=== PATIENT | female | born 1950 | race Caucasian/White ===

== ENCOUNTER → 2016-03-19 | Outpatient (CLI) | payer BC ==
[~2016-03-19] MED LIST: ALBUAER2 INH; B-COTAB18 PO; CETI10TA10 PO; CHOL100027 PO; FIBER PO; MULT-506 PO; PRLSR20 PO
--- NOTE | 2016-03-19 15:00 | MAMMOGRAPHY REPORT ---
UNILATERAL LEFT DIGITAL DIAGNOSTIC MAMMOGRAM TOMOSYNTHESIS WITH CAD AND TARGETED LEFT ULTRASOUND: CLINICAL HISTORY: 65-year-old woman presents for follow-up of masses in the far superior posterior l eft breast, best seen on the MLO view which may represent fat necrosis. History of reduction mammop lasty. TECHNIQUE: Left breast tomosynthesis in addition to standard 2D mammography was performed. Current wilmer canela was also evaluated with a Computer Aided Detection (CAD) system. COMPARISON: Comparison is made to exams dated: 09/15/2015 ultrasound, 09/15/2015 mammogram, 09/08/2015 mammogram, 08/20/2014 mammogram, and 08/19/2013 mammogram - [facility]. BREAST COMPOSITION: The tissue of the left breast is almost entirely fatty. FINDINGS: There is evidence of prior reduction mammoplasty. There is a benign rim calcification in the lower inner anterior left breast. Another benign rim calcification is identified in the far po sterior superior left breast, projecting over the pectoralis muscle on the MLO view. There are othe r smaller benign rim calcifications scattered throughout the left breast. There is an increasingly conspicuous 2-3 mm mass in the upper outer anterior left breast, for which further evaluation with u ltrasound was performed. Some of the round masses in the far superior far posterior left breast per sist and some are less conspicuous compared to the prior exam suggesting they may represent fat necr osis. Further evaluation with ultrasound was performed. No new focal area of architectural distort ion or cluster of suspicious microcalcifications are seen. Targeted ultrasound was performed in the upper outer quadrant of the left breast, and in the 10:00 a nd 11:00 axes. In the 2:00 breast, 2 cm from the nipple, there is a circumscribed round hypoechoic solid versus cystic mass measuring 2.4 x 2.3 x 2.6 mm. This correlates well with the newly visualiz ed small masses in the upper outer quadrant of the left breast. There is a nearly anechoic 2.1 x 2. 0 x 2.6 mm mass in the 11:00 left breast, 9 cm from the nipple, that is not significantly changed co mparing to the 09/15/2015 ultrasound. A slightly larger hypoechoic mass with peripheral curvilinear calcification is again seen in the 10:00 left breast, 8 cm from the nipple, measuring 7.0 x 6.5 x 6 .1 mm. This is also unchanged comparing to the prior ultrasound and likely represents the rim calci fication. IMPRESSION: ACR-BI-RADS CATEGORY 3: PROBABLY BENIGN, TARGETED ULTRASOUND ACR-BI-RADS CATEGORY 3: AR OBABLY BENIGN 1. There are some persistent and some slightly decreased round masses in the far superior and electronics specialist ior left breast on the MLO view that most likely represent evolving fat necrosis. However, longer s tability is needed given that only 2 stable hypoechoic masses are identified on ultrasound in the 10 :00 and 11:00 axes. 2. A newly visualized 2-3 mm mass in the 2:00 left breast mammographically correlates with a hypoec hoic solid versus cystic mass on ultrasound, with a maximum dimension of 2.6 mm. This is most likel y benign and could represent a [place] located cyst, however a solid mass such as a papilloma cannot b e completely excluded. Options of a short interval follow-up targeted ultrasound in 6 months versus ultrasound guided core needle biopsy were provided. The patient will discuss these options with he r breast surgeon, Dr. Dimas, and call to schedule her follow-up appointment. Approximately 10% of breast cancers are not detected with mammography. A negative mammographic repor t should not delay biopsy if a clinically suggestive mass is present. Brenda Kelly M.D. ay/:03/19/2016 10:02:55 Automobile Dealer: Jennifer Norris, [facility] letter sent: Follow Up Recommended 3 BI-RADS Code: ACR-BI-RADS Category 3: Probably Benign Ultrasound BI-RADS: ACR-BI-RADS Category 3: P robably Benign
== END | disposition home or self-care (01) ==
LOC: C.MAMM 09:22
PROVIDERS: ATTEND Family Medicine
DX: N63 Unspecified lump in breast (principal); R92.8 Other abnormal and inconclusive findings on diagnostic imaging of breast

== ENCOUNTER → 2016-03-29 | Outpatient (CLI) | payer BC ==
--- NOTE | 2016-03-29 09:35 | Discharge Instructions ---
Discharge Instructions Procedure Procedure Date: Mar 29, 2016. Reason for visit: Left Mass 2 O'clock. Discharge Discharge Date: Mar 29, 2016. Discharge Diagnosis: status post breast biopsy Instructions Activity Recommendations: Additional Limitations (see below) Return to School/Work: no limitations Recommended Home Diet: No Limitations Provider Instructions: ACTIVITY RECOMMENDATIONS: * No lifting, pushing, pulling or exercising the affected side for three days. RETURN TO SCHOOL/WORK: * You may return to work/school after the procedure, but do not perform any strenuous activities for 24 to 48 hours. MEDICATIONS: * Tylenol (two 325 mg) every four to six hours if needed for mild pain (if not allergic to Tylenol). DIET: * Resume previous diet. SPECIAL CARE INSTRUCTIONS: * Keep biopsy site dry for 24 hours. May shower after 24 hours, but do not soak (bathe) incision. * May remove Tegaderm (plastic patch) tomorrow AFTER showering. * Leave the steri-strips on for one week. Allow the steri-strips to fall off by themselves. If not off after one week, you may remove them. You may place a Bandaid crosswise over the strips, if desired. * Apply ice 10 minutes on and 10 minutes off as needed. * Wear a bra at bedtime to sleep more comfortably for 2-3 days. * Your referring physician should have the results after approximately 5 to 7 business days. * Call for unusual bleeding, fever, drainage, etc or if you have any questions call during normal business hours or after hours call Dr Christiansen, [phone]. FOLLOW UP VISIT: Follow-up with Referring Physician as scheduled. Allergies Coded Allergies: Blackwell Blue FCF (Verified Allergy, Mild, ITCHINESS, 10/08/14) ENTERED FROM OLD ENTRY NOTED 'EXTEX' Erythrosine Red No. 3 (Verified Allergy, Mild, ITCHINESS, 10/08/14) ENTERED FROM OLD ENTRY NOTED 'EXTEX' Guaifenesin (Verified Allergy, Mild, ITCHINESS, 10/08/14) ENTERED FROM OLD ENTRY NOTED 'EXTEX' Phenylephrine (Verified Allergy, Mild, ITCHINESS, 10/08/14) ENTERED FROM OLD ENTRY NOTED 'EXTEX' Rofecoxib (Verified Allergy, Mild, ?, 10/08/14) Yellow Dye (Verified Allergy, Mild, ITCHINESS, 10/08/14) ENTERED FROM OLD ENTRY NOTED 'EXTEX' Clarithromycin (Verified Allergy, Unknown, UNKOWN, 10/08/14) Doxycycline (Verified Allergy, Unknown, UNKNOWN, 10/08/14) Naproxen (Unverified Allergy, Unknown, UNKNOWN, 10/08/14) Acetaminophen (Verified Adverse Reaction, Intermediate, NAUSEA & VOMITING , 10/08/14) Estrogens (Unverified Adverse Reaction, Unknown, HEADACHES, 10/08/14) Morphine (Verified Adverse Reaction, Unknown, ., 10/08/14) OLD ENTRY WITH ADVERSE REACTION TO MORPHINE; NO FURTHER INFO AVAIL; Oxycodone (Unverified Adverse Reaction, Unknown, GI UPSET, 10/08/14) Jessica Reno Recommendations: Call your doctor if: * Temperature above 101 degrees * Pain not relieved by pain medicine ordered * There is increased drainage or redness from any incision * You have any unanswered questions or concerns. Your Doctors Instructions noted above were prepared by provider Karen Christiansen. Patient Signature Section: Patient Instructions Signature Page Swetha Colon Patient (or Guardian) Signature/Date: I have read and understand the instructions given to me by my caregivers. Caregiver/RN/Doctor Signature/Date: The above-named patient and/or guardian has received patient instructions on this date. + Original Patient Signature Page (only) stays with chart. Please make copy for patient.
--- NOTE | 2016-03-29 13:29 | MAMMOGRAPHY REPORT ---
ULTRASOUND GUIDED BIOPSY LEFT BREAST: 03/29/2016 CLINICAL HISTORY: Left 2:00 breast mass, for which biopsy was recommended. The patient also reports a palpable lump in her left inferior breast which she has had for 6 months. Preprocedural ultrasound was performed of the area of the palpable lump pointed out by the patient, in the left breast at 6:30, approximately 3 cm from the nipple. At the site of the palpable lump th ere is a superficial oval anechoic circumscribed mass which measures 5 x 4 x 6 mm. This likely spencer esponds with a benign rim calcification seen mammographically, and is benign and consistent with an oil cyst. PATIENT CONSENT: The procedure, risks and benefits were discussed with the patient and informed writ ten consent was obtained. A timeout was performed immediately prior to the procedure. PROCEDURE DESCRIPTION: With ultrasound guidance, aseptic technique, and lidocaine as the local anest hetic (1% lidocaine to anesthetize the skin and 1% lidocaine with epinephrine to anesthetize the tasha per tissues), the mass of concern in the left breast at 2:00 was sampled 1 time with a 14-gauge Achi justine biopsy needle. After the first pass, the mass had collapsed and was no longer evident, suggesti ve of a cyst such as an oil cyst. Therefore, no further passes were made. A metallic localizer cli p was placed in the region of the biopsied mass. Direct pressure was applied to the site immediately post procedure and hemostasis was achieved. Postprocedure unilateral mammograms were performed to confirm placement of the clip in the expected location of the breast mass. The patient tolerated the procedure without complication. She was given wound care instructions. The specimens were sent to pathology for analysis. COMPARISON: Comparison is made to exams dated: 03/19/2016 ultrasound, 03/19/2016 mammogram, 09/15/2015 ultrasound, 09/15/2015 mammogram, 09/08/2015 mammogram, and 08/20/2014 mammogram - [facility]. IMPRESSION: ULTRASOUND GUIDED BIOPSY 1. Ultrasound guided core needle biopsy of the left 2:00 breast mass, with clip placement. The mas s collapsed after the first pass, suggestive of a cyst such as an oil cyst. The patient will receiv e pathology results from her referring provider. 2. A benign 6 mm oil cyst seen at the site of the palpable lump pointed out by the patient in the l eft breast at approximately 6:30. Karen Christiansen M.D. ah/:03/29/2016 10:00:05 Agricultural Science Professor: Agatha MCCLURE)([place]), [facility]
--- NOTE | 2016-03-29 13:30 | MAMMOGRAPHY REPORT ---
UNILATERAL LEFT DIGITAL DIAGNOSTIC MAMMOGRAM: 03/29/2016 CLINICAL HISTORY: Status post ultrasound guided biopsy of the left 2:00 breast mass. TECHNIQUE: Postprocedural left CC and ML views were obtained. COMPARISON: Comparison is made to exams dated: 03/19/2016 mammogram, 09/15/2015 mammogram, 09/08/2015 mammogram, 08/20/2014 mammogram, 08/19/2013 mammogram, and 08/18/2012 mammogram - [facility]. BREAST COMPOSITION: The tissue of the left breast is almost entirely fatty. FINDINGS: A new biopsy marker clip is seen at the site of the biopsied mass in the left upper outer quadrant. The biopsy clip is located at the site of the mammographic mass visualized on the 017 exam, indicating good correlation between the biopsied sonographic mass and the mammographic mas s. No significant postbiopsy hematoma is seen. IMPRESSION: POST PROCEDURE IMAGING FOR MARKER PLACEMENT New biopsy marker clip status post ultrasound-guided biopsy of the left 2:00 breast mass. Pathology results are pending. Approximately 10% of breast cancers are not detected with mammography. A negative mammographic repor t should not delay biopsy if a clinically suggestive mass is present. Karen Christiansen M.D. ah/:03/29/2016 10:16:03 Senior Living Advisor: Agatha MCCLURE)([place]), [facility] BI-RADS Code: Post Procedure Imaging For Marker Placement
== END | disposition home or self-care (01) ==
LOC: C.MAMM 09:03
PROVIDERS: ATTEND Surgery
DX: N60.12 Diffuse cystic mastopathy of left breast (principal); N60.02 Solitary cyst of left breast

== ENCOUNTER → 2016-04-21 | Outpatient (CLI) | payer BC ==
--- NOTE | 2016-04-21 19:31 | DIAGNOSTIC IMAGING REPORT ---
CHEST 2 VIEWS ROUTINE CLINICAL HISTORY: Bronchitis. COMPARISON STUDY: 05/14/2013 FINDINGS: The cardiac and mediastinal contours are normal. There is no evidence of focal pulmonary consolidation. There is no evidence of failure. No pleural effusions are visualized.[ IMPRESSION: No active disease in the chest. Electronically signed by: Adiel Espinosa M.D. 04/21/2016 7:30 PM Dictated Date/Time: 04/21/2016 7:29 PM
== END | disposition home or self-care (01) ==
LOC: C.RAD 18:56
PROVIDERS: ATTEND Plastic Surgery
DX: J40 Bronchitis, not specified as acute or chronic (principal)

== ENCOUNTER → 2016-06-06 | Outpatient (CLI) | payer BC ==
[2016-06-06 18:28] LABS: BLOOD UREA NITROGEN 13 mg/dl (7-18); CALCIUM 8.8 mg/dl (8.5-10.1); CARBON DIOXIDE 29 mmol/L (21-32); CHLORIDE 108 mmol/L (98-107); CREATININE 0.85 mg/dl (0.60-1.20); GLUCOSE 102 mg/dl (70-99); POTASSIUM 4.3 mmol/L (3.5-5.1); SODIUM 144 mmol/L (136-145)
[2016-06-06 18:33] LABS: CHOLESTEROL 186 mg/dl (0-200); CHOLESTEROL/HDL RATIO 2.7; HDL CHOLESTEROL 69 mg/dl; LDL CHOLESTEROL CALCULATED 100 mg/dl; TRIGLYCERIDES 86 mg/dl (0-150); VERY LOW DENSITY LIPOPROT CALC 17 mg/dl
== END | disposition home or self-care (01) ==
LOC: C.LABPVFM 11:20
PROVIDERS: ATTEND Nurse Practitioner
DX: I10 Essential (primary) hypertension (principal); E55.9 Vitamin D deficiency, unspecified; Z13.220 Encounter for screening for lipoid disorders

== ENCOUNTER → 2016-09-11 | Outpatient (CLI) | payer BC ==
--- NOTE | 2016-09-11 15:59 | MAMMOGRAPHY REPORT ---
BILATERAL DIGITAL SCREENING MAMMOGRAM TOMOSYNTHESIS WITH CAD: 09/11/2016 CLINICAL HISTORY: Routine screening. Patient has no complaints. TECHNIQUE: Breast tomosynthesis in addition to standard 2D mammography was performed. Current study was also evaluated with a Computer Aided Detection (CAD) system. COMPARISON: Comparison is made to exams dated: 03/29/2016 mammogram, 03/19/2016 mammogram, 09/15/2015 ma mmogram, 09/08/2015 mammogram, 08/20/2014 mammogram, and 08/19/2013 mammogram - [facility]. BREAST COMPOSITION: The tissue of both breasts is almost entirely fatty. FINDINGS: There is evidence of prior reduction mammoplasty. There is stable asymmetry with associate d calcification in the superior right breast on the MLO view, which appears similar dating back to at least 2007, therefore likely benign. There is a stable metallic biopsy marker in the left breast. Scattered benign-appearing calcifications. No new suspicious mass, architectural distortion or clust er of microcalcifications is seen. IMPRESSION: ACR BI-RADS CATEGORY 1: NEGATIVE There is no mammographic evidence of malignancy. A 1 year screening mammogram is recommended. The pa tient will receive written notification of the results. Approximately 10% of breast cancers are not detected with mammography. A negative mammographic report should not delay biopsy if a clinically suggestive mass is present. Brenda Kelly M.D. ay/:09/11/2016 13:09:29 Respiratory Supervisor: Leyla OWEN(Maco)([place])([place]), [facility] letter sent: Normal 1/2 BI-RADS Code: ACR BI-RADS Category 1: Negative
== END | disposition home or self-care (01) ==
LOC: C.MAMM 09:05
PROVIDERS: ATTEND Family Medicine
DX: Z12.31 Encounter for screening mammogram for malignant neoplasm of breast (principal)

== ENCOUNTER → 2016-12-24 | Outpatient (CLI) | payer BC ==
[2016-12-24 12:25] LABS: BLOOD UREA NITROGEN 13 mg/dl (7-18); BUN/CREATININE RATIO 15.6 (10-20); CALCIUM 8.9 mg/dl (8.5-10.1); CARBON DIOXIDE 28 mmol/L (21-32); CHLORIDE 108 mmol/L (98-107); CREATININE 0.84 mg/dl (0.60-1.20); GLUCOSE 100 mg/dl (70-99); POTASSIUM 4.2 mmol/L (3.5-5.1); SODIUM 142 mmol/L (136-145)
== END | disposition home or self-care (01) ==
LOC: C.LABBFT 07:57
PROVIDERS: ATTEND Nurse Practitioner
DX: I10 Essential (primary) hypertension (principal)

== ENCOUNTER → 2017-06-27 | Outpatient (CLI) | payer BC ==
[2017-06-27 13:47] LABS: BLOOD UREA NITROGEN 9 mg/dl (7-18); CALCIUM 8.9 mg/dl (8.5-10.1); CARBON DIOXIDE 28 mmol/L (21-32); CHOLESTEROL 191 mg/dl (0-200); CREATININE 0.94 mg/dl (0.60-1.20); GLUCOSE 94 mg/dl (70-99); POTASSIUM 4.3 mmol/L (3.5-5.1); SODIUM 141 mmol/L (136-145)
[2017-06-27 13:51] LABS: LDL CHOLESTEROL CALCULATED 100 mg/dl
== END | disposition home or self-care (01) ==
LOC: C.LABPVFM 10:36
PROVIDERS: ATTEND Nurse Practitioner
DX: I10 Essential (primary) hypertension (principal); E55.9 Vitamin D deficiency, unspecified

== ENCOUNTER → 2017-09-13 | Outpatient (CLI) | payer BC ==
--- NOTE | 2017-09-16 07:45 | MAMMOGRAPHY REPORT ---
BILATERAL DIGITAL SCREENING MAMMOGRAM TOMOSYNTHESIS WITH CAD: 09/13/2017 CLINICAL HISTORY: Routine screening. Patient has no complaints. TECHNIQUE: The study was acquired using full field digital technology and interpreted from soft copy. Breast tomosynthesis in addition to standard 2D mammography was performed. Current study was also ev aluated with a Computer Aided Detection (CAD) system. COMPARISON: Comparison is made to exams dated: 09/11/2016 mammogram, 03/29/2016 mammogram, 03/19/2016 ma mmogram, 09/15/2015 mammogram, 09/08/2015 mammogram, and 08/20/2014 mammogram - [facility] nter. BREAST COMPOSITION: The tissue of both breasts is almost entirely fatty. FINDINGS: No suspicious masses, calcifications, or areas of architectural distortion are noted in either breast . There has been no significant interval change compared to prior exams. There are stable changes fr om bilateral reduction mammoplasty. Bilateral benign-appearing calcifications are not significantly changed. A biopsy clip is again noted within the left upper outer quadrant. IMPRESSION: There is no mammographic evidence of malignancy. A 1 year screening mammogram is recommended.( 019) The patient will receive written notification of the results. Some breast cancers are not detected with mammography. A negative mammographic report should not piter y biopsy if a clinically suggestive mass is present. Karen Christiansen M.D. ah/:09/13/2017 12:29:11 Border Measurer And Cutter: Leyla Allen RT(Maco)(M)([place]), [facility] letter sent: Normal 1/2 BI-RADS Code: ACR BI-RADS Category 2: Benign
== END | disposition home or self-care (01) ==
LOC: C.MAMM 09:32
PROVIDERS: ATTEND Nurse Practitioner
DX: Z12.31 Encounter for screening mammogram for malignant neoplasm of breast (principal)

== ENCOUNTER 2019-04-14 17:28 | Inpatient (IN) ==
[2019-04-14] MEDS ORDERED: METHYLPREDNISOLONE IV STA (19:54)
[2019-04-14] MEDS ORDERED: XOPENEX/ATROVENT 1.25mg/0.5MG NEB COMBO NEB STA (19:56)
[2019-04-14] MEDS ORDERED: ACETAMINOPHEN 500 MG TAB PO STA (19:56)
[2019-04-14] MEDS ORDERED: SODIUM CHLORIDE 0.9% 1000ML 1,000 ML IV ONE (19:58)
[2019-04-14] MEDS ORDERED: IPRATROPIUM BROMIDE NEB SOLN 0.02% 2.5 ML VIAL INH SCH (20:00)
[2019-04-14] MEDS ORDERED: LEVALBUTEROL 1.25MG/0.5ML NEB INH SCH (20:00)
--- NOTE | 2019-04-14 20:25 | Emergency Department Note ---
Entered by Dimitry Maldonado acting as a scribe for History of Present Illness General Chief complaint: Cough Stated complaint: COUGH, SOB, CONGESTION Time Seen by Provider: 04/14/19 19:48 Source: patient History of Present Illness Onset (ago): day(s) Pain Consistency: + constant (100.3) Quality: + other (fever) Relieved By: + medication (Tylenol) Associated symptoms: + denies other symptoms (vomiting), + cough and + other (sore throat, nausea) The patient is a 68 y/o female who presents to the ED w/ CC of an intermittent fever beginning three days ago. The patient states she has had a loose cough and sore throat for the past six days. She reports she the developed a cough four days ago. The patient notes she was evaluated by her PCP and placed on a z-pack that she finished yesterday. She states she developed a fever after starting the z-pack, and for the past three days she has had a progressive fever. The patient reports she went to her PCP yesterday for her fever of 100.3 degrees that per sisted after taking Tylenol. She notes she was placed on another z-pack. The patient states she was also placed on Prednisone. She reports she has now developed an intermittent productive cough. The patient notes she does not feel better today than she did yesterday. She states a history of asthma and notes she has an inhaler and a nebulizer. The patient reports she did not use her nebulizer yet. She notes she has not vomited yet but has been nauseous from what she thinks is her sinus drainage. The patient states she has not been able to eat much. She denies receiving her flu shot and being around anyone sick. Home Medications Home Medications Medication Instructions Recorded Confirmed Type cetirizine 10 mg PO HS 02/05/18 04/14/19 History cholecalciferol (vitamin D3) 5,000 unit PO QAM 02/05/18 04/14/19 History [Vitamin D3] fiber 3.4 g PO QAM 02/05/18 04/14/19 History hydrocortisone [Proctozone-HC] 1 applic UT DAILY PRN 02/05/18 04/14/19 History levalbuterol HCl 1.25 mg INHALATION TID PRN 02/05/18 04/14/19 History levalbuterol tartrate 2 puff INHALATION QID PRN 02/05/18 04/14/19 History azelastine 137 mcg (0.1 %) nasal 2 sprays INTRANASAL BID PRN #1 ml 09/18/18 04/14/19 History spray aerosol lisinopril 10 mg tablet 10 mg PO Q OTHER DAY #30 tab 09/22/18 04/14/19 Rx azithromycin 250 mg PO DAILY 04/14/19 04/14/19 History codeine 10 mg-guaifenesin 100 mg/5 5 ml PO Q6H PRN #118 ml 04/14/19 04/14/19 Rx mL oral liquid prednisone 10 mg tablet 10 mg PO .COMPLEX #14 tab 04/14/19 04/14/19 Rx Allergies Allergy/AdvReac Type Severity Reaction Status Date / Time naproxen Allergy Severe sob Verified 04/14/19 21:11 cat dander Allergy Intermediate SOB Verified 04/14/19 21:12 clarithromycin Allergy Intermediate ITCHINESS Verified 04/14/19 21:11 dog dander Allergy Intermediate SOB Verified 04/14/19 21:12 doxycycline Allergy Mild itchy Verified 04/14/19 21:11 guaifenesin Allergy Mild ITCHINESS Verified 04/14/19 21:11 phenylephrine Allergy Mild ITCHINESS Verified 04/14/19 21:11 rofecoxib Allergy Mild sob Verified 04/14/19 21:11 bromocriptine [From Parlodel] Allergy Unknown CAN'T Verified 04/14/19 21:11 REMEMBER raloxifene [From Evista] AdvReac Intermediate CAUSED Verified 04/14/19 21:11 STOMACH ISSUES DUE TO ACID REFLUX. morphine AdvReac Mild Gastrointestinal Verified 04/14/19 21:11 Upset Estrogens AdvReac Unknown HEADACHES Verified 04/14/19 21:11 oxycodone AdvReac Unknown GI UPSET Verified 04/14/19 21:11 ANY PERFUMED, FLORAL SCENTS Allergy Severe SOB Uncoded 04/14/19 21:12 [place] Blue [facility] Allergy Mild ITCHINESS Uncoded 04/14/19 21:11 Past Med/Surg History Medical History Asthma Endometriosis Fibromyalgia GERD (gastroesophageal reflux disease) Hearing deficit left ear History of colon polyps Hypertension Scoliosis Surgical History H/O arthroscopic knee surgery (Inactive) History of arthroscopy of left knee History of arthroscopy of right knee History of bilateral breast reduction surgery History of bilateral cataract extraction History of bilateral tubal ligation History of colonoscopy History of dilatation and curettage History of endoscopic sinus surgery History of esophagogastroduodenoscopy (EGD) History of tonsillectomy and adenoidectomy History of tooth extraction wisdom teeth History of total abdominal hysterectomy and bilateral salpingo-oophorectomy Hx of myringotomy left ear S/P hysterectomy (Ruled-out) Family History Father Family history of diabetes mellitus Prostate cancer Myocardial infarction Mother Family history of diabetes mellitus Family hx colonic polyps Myocardial infarction Brother Family history of diabetes mellitus Sister Family history of diabetes mellitus Family hx colonic polyps Family/Other Colorectal cancer nephew Prostate cancer niece Uncle Myocardial infarction Aunt Myocardial infarction Other Family hx of colon cancer Denies family history of Ovarian cancer Breast cancer Social History Preferred Language: Swedish Communication Ability: Effective Aircraft Instrument Tester Required: No Beliefs That Will Affect Care: None Current Living Situation: Family Current Living Situation Comment: Lives with son Feels Safe at Home: Yes Smoking Status: Never smoker Second Hand Exposure: No ; Hx Alcohol Use: No Hx Substance Use: No Dental Care, Regularly: Yes Seatbelt Use: always Review of Systems See HPI for pertinent positives & negatives. and A total of 10 systems reviewed and were otherwise negative Physical Exam Vital Signs Vital Signs - 24 hr 04/14/19 18:09 04/14/19 19:28 04/14/19 19:54 Temperature 38.0 C H Temperature Source Oral Pulse Rate 100 H Pulse Rate [Right Finger] 90 Pulse Rate from SpO2 Sensor Respiratory Rate 22 20 Respiratory Effort / Characteristics Non-Labored Respiratory Depth Normal Respiratory Pattern Regular Blood Pressure 125/82 Blood Pressure [Right Arm] 130/88 Blood Pressure Mean 96 Blood Pressure Mean [Right Arm] 102 Blood Pressure Position Sitting Pulse Oximetry 94 99 97 Oxygen Delivery Method Room Air Room Air Sepsis Recent Fever Within 48 Hours Yes Sepsis Action Taken by Nursing No Action Required 04/14/19 20:39 04/14/19 20:47 04/14/19 20:49 Temperature Temperature Source Pulse Rate 94 H Pulse Rate [Right Finger] 90 96 H Pulse Rate from SpO2 Sensor Respiratory Rate 18 27 H 20 Respiratory Effort / Characteristics Non-Labored Spontaneous Respiratory Depth Respiratory Pattern Blood Pressure 131/86 Blood Pressure [Right Arm] 131/86 Blood Pressure Mean 103 Blood Pressure Mean [Right Arm] 101 Blood Pressure Position Pulse Oximetry 94 97 Oxygen Delivery Method Room Air Sepsis Recent Fever Within 48 Hours Sepsis Action Taken by Nursing 04/14/19 21:02 04/14/19 22:00 04/14/19 23:10 Temperature Temperature Source Pulse Rate 93 H 84 Pulse Rate [Right Finger] 88 Pulse Rate from SpO2 Sensor Respiratory Rate 21 23 Respiratory Effort / Characteristics Respiratory Depth Respiratory Pattern Blood Pressure 128/88 136/79 Blood Pressure [Right Arm] 172/99 H Blood Pressure Mean 101 98 Blood Pressure Mean [Right Arm] 123 Blood Pressure Position Pulse Oximetry 93 Oxygen Delivery Method Room Air Sepsis Recent Fever Within 48 Hours Sepsis Action Taken by Nursing 04/14/19 23:11 04/14/19 23:12 Temperature Temperature Source Pulse Rate 96 H 86 Pulse Rate [Right Finger] Pulse Rate from SpO2 Sensor 96 H 86 Respiratory Rate 35 H 21 Respiratory Effort / Characteristics Respiratory Depth Respiratory Pattern Blood Pressure 172/99 H Blood Pressure [Right Arm] Blood Pressure Mean 125 Blood Pressure Mean [Right Arm] Blood Pressure Position Pulse Oximetry 90 95 Oxygen Delivery Method Sepsis Recent Fever Within 48 Hours Sepsis Action Taken by Nursing GENERAL: Patient is in no acute distress. HEENT: No acute trauma, normocephalic atraumatic, mucous membranes moist, no nasal congestion, no scleral icterus. No throat erythema. NECK: No stridor, no adenopathy, no meningismus, trachea is midline. LUNGS: Persistent dry cough noted. Equal breath sound bilaterally. No respiratory distress. Scattered wheezes. HEART: Without murmurs gallops or rubs, regular rate and rhythm. ABDOMEN: Soft, nontender, bowel sounds positive, no hernias, no peritonitis. EXTREMITIES: No cyanosis or edema, full range of motion of all the joints without pain or difficulty, no signs for acute trauma. NEUROLOGIC: Oriented x 3, no acute motor or sensory deficits, no focal weakness. SKIN: No rash, no jaundice, no diaphoresis. Course Course 1950: Past medical records reviewed. The patient was evaluated in room C10. A complete history and physical exam was performed. 2200: Upon reevaluation, the patient is resting comfortably. I discussed laboratory and radiographic results with her. She verbalized agreement of the treatment plan. The patient will be evaluated for further management and care. 2208: I reviewed the patient's case with Dr. Camacho, [facility] Hospitalist. He will evaluate the patient for further management. Administered Medications Ipratropium [place] (Atrovent 0.02% 0.5mg/2.5ml) 0.5 mg INH UD FILI Stop: 05/14/19 19:59 Last Admin: 04/14/19 20:36 Dose: 0.5 mg Documented by: [id number] Levalbuterol HCl (Xopenex 1.25mg/0.5ml Neb) 1.25 mg INH UD FILI Stop: 05/14/19 19:59 Last Admin: 04/14/19 20:37 Dose: 1.25 mg Documented by: [id number] Discontinued Medications Acetaminophen (Tylenol) 1,000 mg PO NOW STA Stop: 04/14/19 19:57 Last Admin: 04/14/19 21:06 Dose: 1,000 mg Documented by: [id number] Benzonatate (Tessalon [place]) 100 mg PO NOW ONE Stop: 04/14/19 22:20 Last Admin: 04/14/19 23:12 Dose: 100 mg Documented by: [id number] Methylprednisolone 40 mg/ (Syringe) 1.64 mls @ 1.5 mls/min IV NOW STA Stop: 04/14/19 19:55 Last Admin: 04/14/19 21:06 Dose: 1.5 mls/min Documented by: [id number] Sodium Chloride (Nss 1000ml) 1,000 mls @ 999 mls/hr IV .Q1H1M ONE Stop: 04/14/19 20:58 Last Infusion: 04/14/19 22:16 Dose: 0 mls/hr Documented by: [id number] Admin: 04/14/19 21:06 Dose: 999 mls/hr Documented by: [id number] Ceftriaxone Sodium (Rocephin) 1,000 mg in 50 mls @ 100 mls/hr IV NOW STA Stop: 04/14/19 21:22 Last Infusion: 04/14/19 22:16 Dose: 0 mls/hr Documented by: [id number] Admin: 04/14/19 21:07 Dose: 100 mls/hr Documented by: [id number] Levalbuterol HCl (Xopenex 1.25mg/0.5ml Neb) 1.25 mg NEB NOW STA Stop: 04/14/19 20:35 Last Admin: 04/14/19 21:11 Dose: Not Given Documented by: [id number] Methylprednisolone (Solumedrol) Confirm Administered Dose 40 mg .ROUTE .STK-MED ONE Stop: 04/14/19 21:05 Last Admin: 04/14/19 21:11 Dose: Not Given Documented by: [id number] Miscellaneous (Levalbuterol/Ipratropium 1.25mg) 1 ea NEB NOW STA Stop: 04/14/19 19:57 Last Admin: 04/14/19 21:07 Dose: Not Given Documented by: [id number] Medical Decision Making Differential Diagnosis Differential diagnosis includes: flu like illness, influenza, bronchitis, p neumonia, dehydration, sinusitis, sepsis, failed outpatient treatment, exacerbation of asthma Medical Records Attestation: I reviewed the patient's medical records. Home Medications Current Medication List: was personally reviewed by me Laboratory Data Attestation: I reviewed the patient's lab results. Result diagrams: 04/14/19 20:20 04/14/19 20:20 Lab Results 04/14/19 04/14/19 04/14/19 Range/Units 20:20 20:20 20:20 WBC 8.55 (4.8-10.8) K/uL RBC 5.22 (4.2-5.4) M/uL Hgb 15.3 (12.0-16.0) g/dL Hct 46.2 (37-47) % MCV 88.5 (80-100) fL MCH 29.3 (25-34) pg MCHC 33.1 (32-36) g/dL RDW Std Deviation 39.2 (36.4-46.3) fL RDW Coeff of Chiqui 12.2 (11.5-14.5) % Plt Count 217 (130-400) K/uL MPV 10.4 (7.4-10.4) fL Immature Gran % (Auto) 0.8 % Neut % (Auto) 37.3 % Lymph % (Auto) 46.5 % [place] % (Auto) 13.6 % Eos % (Auto) 1.2 % Baso % (Auto) 0.6 % Immature Gran # (Auto) 0.07 H (0.00-0.02) K/uL Neut # (Auto) 3.19 (1.4-6.5) K/uL Lymph # (Auto) 3.98 H (1.2-3.4) K/uL [place] # (Auto) 1.16 H (0.11-0.59) K/uL Eos # (Auto) 0.10 (0-0.5) K/uL Baso # (Auto) 0.05 (0-0.2) K/uL Sodium 135 L (136-145) mmol/L Potassium 3.9 (3.5-5.1) mmol/L Chloride 101 (98-107) mmol/L Carbon Dioxide 27 (21-32) mmol/L Anion Gap 7.0 (3-11) BUN 13 (7-18) mg/dl Creatinine 1.05 (0.6-1.2) mg/dl Est Cr Clr Drug Dosing 45.2 ml/min Est GFR ( Amer) 63.6 Est GFR (Non-Af Amer) 54.9 BUN/Creatinine Ratio 12.5 (10-20) Glucose 93 (70-99) mg/dl Lactate 1.4 (0.4-2.0) mmol/L Calcium 9.6 (8.5-10.1) mg/dl Total Bilirubin 0.8 (0.2-1) mg/dl AST 28 (15-37) U/L ALT 28 (12-78) U/L Alkaline Phosphatase 73 (45-117) U/L Troponin I < 0.015 (0-0.045) ng/ml Total Protein 8.8 H (6.4-8.2) gm/dl Albumin 4.6 (3.4-5.0) gm/dl Globulin 4.2 H (2.5-4.0) gm/dl Albumin/Globulin Ratio 1.1 (0.9-2) Influenza Type A (PCR) (Neg) Influenza Type B (PCR) (Neg) 04/14/19 Range/Units 20:50 WBC (4.8-10.8) K/uL RBC (4.2-5.4) M/uL Hgb (12.0-16.0) g/dL Hct (37-47) % MCV (80-100) fL MCH (25-34) pg MCHC (32-36) g/dL RDW Std Deviation (36.4-46.3) fL RDW Coeff of Chiqui (11.5-14.5) % Plt Count (130-400) K/uL MPV (7.4-10.4) fL Immature Gran % (Auto) % Neut % (Auto) % Lymph % (Auto) % [place] % (Auto) % Eos % (Auto) % Baso % (Auto) % Immature Gran # (Auto) (0.00-0.02) K/uL Neut # (Auto) (1.4-6.5) K/uL Lymph # (Auto) (1.2-3.4) K/uL [place] # (Auto) (0.11-0.59) K/uL Eos # (Auto) (0-0.5) K/uL Baso # (Auto) (0-0.2) K/uL Sodium (136-145) mmol/L Potassium (3.5-5.1) mmol/L Chloride (98-107) mmol/L Carbon Dioxide (21-32) mmol/L Anion Gap (3-11) BUN (7-18) mg/dl Creatinine (0.6-1.2) mg/dl Est Cr Clr Drug Dosing ml/min Est GFR ( Amer) Est GFR (Non-Af Amer) BUN/Creatinine Ratio (10-20) Glucose (70-99) mg/dl Lactate (0.4-2.0) mmol/L Calcium (8.5-10.1) mg/dl Total Bilirubin (0.2-1) mg/dl AST (15-37) U/L ALT (12-78) U/L Alkaline Phosphatase (45-117) U/L Troponin I (0-0.045) ng/ml Total Protein (6.4-8.2) gm/dl Albumin (3.4-5.0) gm/dl Globulin (2.5-4.0) gm/dl Albumin/Globulin Ratio (0.9-2) Influenza Type A (PCR) Neg for Influ A (Neg) Influenza Type B (PCR) Neg for Influ B (Neg) Imaging Data Radiologist's Impression: Radiology results as stated below per my review and the radiologist's interpretation: XR chest 1V portable CLINICAL HISTORY: SOB COMPARISON STUDY: 04/13/2019 FINDINGS: The cardiac and mediastinal contours remain stable. There is no focal pulmonary consolidation. There is no failure. There are no pleural effusions. There is an 8 mm nodular opacity at the left lung base. No corresponding mass is visualized in this study performed one day prior. This favors atelectatic etiology. Short-term radiographic follow-up is recommended.[ IMPRESSION: 1. No evidence of failure 2. No evidence of lobar consolidation 3. Interval development of an 8 mm opacity at the left lung base. Atelectatic etiology is favored. Short-term radiographic follow-up is recommended ACT 112: Negative or not required by law. Electronically signed by: Adiel Espinosa M.D. 04/14/2019 8:27 PM ECG Data Attestation: I personally reviewed and interpreted this ECG as follows: Indication: + SOB/dyspnea Rate (beats per minute): 93 Rhythm: + normal sinus ECG Intervals/blocks: + Normal QT-c (457) ECG ST segments: no ST elevation ECG Findings: no PVCs Blood Pressure Blood Pressure Findings: Elevated blood pressure Blood Pressure Disposition: further management by hospitalist TASNEEM Narrative Continuous Cardiac Monitoring: An order was placed for continuous cardiac monitoring. The monitor shows a rate of 96 with a normal sinus rhythm. There is no leukocytosis or concerning anemia. No significant electrolyte abnormality or kidney failure. Lactic acid level is not elevated making severe sepsis less likely. There was no worrisome liver enzyme elevation. EKG showed a sinus rhythm, no acute ischemia. Cardiac enzyme testing x1 was not consistent with acute cardiac injury. Influenza testing was negative. Chest film does show a subtle left lower lung infiltrate. The patient presents with a fever. She has been short of breath and is coughing quite a bit. She is on her second course of Zithromax, she is already on prednisone. She is failing outpatient treatment for this pneumonia. The patient was given oral Tylenol, oral Tessalon. She was given IV ceftriaxone as antibiotic coverage. She received a Xopenex/Atrovent neb. She was given IV Solu-Medrol and IV saline. The patient is not comfortable with discharge. She has been worsening despite treatment as an outpatient. I did speak to the supportive employment case manager, the on-call hosp italist has been consulted. IV antibiotic therapy is indicated. Impression & Plan Pneumonia, Asthma exacerbation, Fever, Failure of outpatient treatment Discharge Plan Visit Data Chief Complaint: Cough Stated Complaint: COUGH, SOB, CONGESTION ED Provider: Rodney Simmons Discharge Problem: Pneumonia, Asthma exacerbation, Fever, Failure of outpatient treatment Patient Disposition: Being Evaluated by Hospitalist Forms Stand Alone Forms: My [facility] Prescriptions Prescriptions: No Action prednisone 10 mg tablet 10 mg PO .COMPLEX Qty: 14 RF: 0 codeine-guaifenesin 10-100 mg/5 mL liquid 5 ml PO Q6H PRN (Reason: cold symptoms) Qty: 118 RF: 0 azelastine 137 mcg (0.1 %) aerosol,spray 2 sprays intranasal BID PRN (Reason: allergy symptoms) Qty: 1 RF: 0 lisinopril 10 mg tablet 10 mg PO Q OTHER DAY Qty: 30 RF: 5 cetirizine 10 mg Tablet 10 mg PO HS RF: 0 hydrocortisone [Proctozone-HC] 2.5 % Cream With Perineal Applicator 1 applic UT DAILY PRN (Reason: Hemorrhoids) RF: 0 fiber Powder 3.4 g PO QAM RF: 0 levalbuterol HCl 1.25 mg/0.5 mL Solution For Nebulization 1.25 mg INHALATION TID PRN (Reason: Shortness Of Breath) RF: 0 cholecalciferol (vitamin D3) [Vitamin D3] 5,000 unit Tablet 5,000 unit PO QAM RF: 0 levalbuterol tartrate 45 mcg/actuation Hfa Aerosol Inhaler 2 puff INHALATION QID PRN (Reason: Shortness Of Breath) RF: 0 azithromycin 250 mg tablet 250 mg PO DAILY RF: 0 Referrals Referrals: Natasha Cartagena CRNP [Primary Care Provider] - Discharge Problem: Pneumonia Qualifiers: Pneumonia type: due to unspecified organism Laterality: unspecified laterality Lung location: unspecified part of lung Qualified Code(s): J18.9 - Pneumonia, unspecified organism Asthma exacerbation Qualifiers: Asthma severity: unspecified severity Asthma persistence: unspecified Qualified Code(s): J45.901 - Unspecified asthma with (acute) exacerbation Fever Qualifiers: Fever type: unspecified Qualified Code(s): R50.9 - Fever, unspecified The trentonibe's documentation has been prepared under my direction and personally reviewed by me in its entirety. I confirm that the note above accurately reflects all work, treatment, procedures, and medical decision making performed by me.
[2019-04-14 20:28] LABS: Basophils # (auto) 0.05 K/uL (0-0.2); Basophils % (auto) 0.6 %; Eosinophils % (auto) 1.2 %; Hematocrit (blood only) 46.2 % (37-47); Hemoglobin 15.3 g/dL (12.0-16.0); Immature Granulocytes # (auto) 0.07 K/uL (0.00-0.02); Immature Granulocytes % (auto) 0.8 %; Lymphocytes # (auto) 3.98 K/uL (1.2-3.4); Lymphocytes % (auto) 46.5 %; Mean Corpuscular Hemoglobin 29.3 pg (25-34); Mean Corpuscular Hgb Conc 33.1 g/dL (32-36); Mean Corpuscular Volume 88.5 fL (80-100); Mean Platelet Volume 10.4 fL (7.4-10.4); Monocytes # (auto) 1.16 K/uL (0.11-0.59); Monocytes % (auto) 13.6 %; Neutrophils # (auto) 3.19 K/uL (1.4-6.5); Neutrophils % (auto) 37.3 %; Platelet Count 217 K/uL (130-400); RDW Coefficient of Variation 12.2 % (11.5-14.5); RDW Standard Deviation 39.2 fL (36.4-46.3); Red Blood Count 5.22 M/uL (4.2-5.4); White Blood Count 8.55 K/uL (4.8-10.8)
--- NOTE | 2019-04-14 20:29 | XRay Report ---
XR chest 1V portable CLINICAL HISTORY: SOB COMPARISON STUDY: 04/13/2019 FINDINGS: The cardiac and mediastinal contours remain stable. There is no focal pulmonary consolidati on. There is no failure. There are no pleural effusions. There is an 8 mm nodular opacity at the left lung base. No corresponding mass is visualized in this study performed one day prior. This favors at electatic etiology. Short-term radiographic follow-up is recommended.[ IMPRESSION: 1. No evidence of failure 2. No evidence of lobar consolidation 3. Interval development of an 8 mm opacity at the left lung base. Atelectatic etiology is favored. Sh ort-term radiographic follow-up is recommended ACT 112: Negative or not required by law. Electronically signed by: Adiel Espinosa M.D. 04/14/2019 8:27 PM
[2019-04-14] MEDS ORDERED: LEVALBUTEROL 1.25MG/0.5ML NEB NEB STA (20:34)
[2019-04-14 20:46] LABS: Alanine Aminotransferase 28 U/L (12-78); Albumin Level 4.6 gm/dl (3.4-5.0); Aspartate Aminotransferase 28 U/L (15-37); BUN Creatinine Ratio 12.5 (10-20); Blood Urea Nitrogen 13 mg/dl (7-18); Calcium 9.6 mg/dl (8.5-10.1); Carbon Dioxide 27 mmol/L (21-32); Chloride 101 mmol/L (98-107); Creatinine Clr Calc Pharmacy 45.2 ml/min; Est GFR (African American) 63.6; Est GFR (Non-African American) 54.9; Glucose 93 mg/dl (70-99); Potassium 3.9 mmol/L (3.5-5.1); Sodium 135 mmol/L (136-145)
[2019-04-14 20:50] LABS: Albumin Globulin Ratio 1.1 (0.9-2); Alkaline Phosphatase 73 U/L (45-117); Bilirubin,Total 0.8 mg/dl (0.2-1); Globulin 4.2 gm/dl (2.5-4.0); Total Protein 8.8 gm/dl (6.4-8.2); Troponin I < 0.015 ng/ml (0-0.045)
[2019-04-14] MEDS ORDERED: cefTRIAXone SODIUM 1,000 MG/50 ML BAG IV STA (20:53)
[2019-04-14 21:43] LABS: Influenza A virus by PCR Neg for Influ A (Neg); Influenza B virus by PCR Neg for Influ B (Neg)
[2019-04-14] MEDS ORDERED: BENZONATATE 100 MG CAPSULE PO ONE (22:19)
--- NOTE | 2019-04-14 23:20 | History & Physical Report ---
Date of Service April 14, 2019 Assessment & Plan (1) Pneumonia: Asthmatic bronchitis/left lower lobe pneumonia/failure of outpatient treatment with a azithromycin and prednisone- Ceftriaxone 2 g IV daily. Xopenex 1.25 mg 4 times daily and every 2 hours as needed Azithromycin 500 mg IV daily. Hycodan syrup 10 mils p.o. every 4 hours as needed severe cough Solu-Medrol 40 mg IV every 8 hours. Present on Admission?: Yes (2) Asthmatic bronchitis: See above Present on Admission?: Yes (3) Failure of outpatient treatment: See above Present on Admission?: Yes (4) Benign essential hypertension: Continue lisinopril 10 mg daily Present on Admission?: Yes History of Present Illness Chief Complaint: The patient presents to the emergency department with persistence of cough, shortness of breath and chest congestion not relieved by Z-Сергей x2 in the outpatient setting. Primary Care Provider: KELLIE You The patient is a 68-year-old female with a past medical history including asthma, osteoporosis, allergic rhinitis, benign essential hypertension, GERD and vitamin D deficiency. She initially came sick about a week ago, and was prescribed an initial Z-Сергей, which did not improve significantly, she was prescribed a second Z-Сергей. Over the past 24 hours she has worsened considerably her cough is is paroxysmal and severe. She has had a continued fever up to 100.3 over the past 3 days, despite treatment with prednisone and azithromycin. Because of worsening symptoms, she presents emergency department for assessment tonight. Allergies Allergy/AdvReac Type Severity Reaction Status Date / Time naproxen Allergy Severe sob Verified 04/14/19 21:11 cat dander Allergy Intermediate SOB Verified 04/14/19 21:12 clarithromycin Allergy Intermediate ITCHINESS Verified 04/14/19 21:11 dog dander Allergy Intermediate SOB Verified 04/14/19 21:12 doxycycline Allergy Mild itchy Verified 04/14/19 21:11 guaifenesin Allergy Mild ITCHINESS Verified 04/14/19 21:11 phenylephrine Allergy Mild ITCHINESS Verified 04/14/19 21:11 rofecoxib Allergy Mild sob Verified 04/14/19 21:11 bromocriptine [From Parlodel] Allergy Unknown CAN'T Verified 04/14/19 21:11 REMEMBER raloxifene [From Evista] AdvReac Intermediate CAUSED Verified 04/14/19 21:11 STOMACH ISSUES DUE TO ACID REFLUX. morphine AdvReac Mild Gastrointestinal Verified 04/14/19 21:11 Upset Estrogens AdvReac Unknown HEADACHES Verified 04/14/19 21:11 oxycodone AdvReac Unknown GI UPSET Verified 04/14/19 21:11 ANY PERFUMED, FLORAL SCENTS Allergy Severe SOB Uncoded 04/14/19 21:12 [place] [facility] Allergy Mild ITCHINESS Uncoded 04/14/19 21:11 Home Medications Home Medications Medication Instructions Recorded Confirmed Type cetirizine 10 mg PO HS 02/05/18 04/14/19 History cholecalciferol (vitamin D3) 5,000 unit PO QAM 02/05/18 04/14/19 History [Vitamin D3] fiber 3.4 g PO QAM 02/05/18 04/14/19 History hydrocortisone [Proctozone-HC] 1 applic RI DAILY PRN 02/05/18 04/14/19 History levalbuterol HCl 1.25 mg INHALATION TID PRN 02/05/18 04/14/19 History levalbuterol tartrate 2 puff INHALATION QID PRN 02/05/18 04/14/19 History azelastine 137 mcg (0.1 %) nasal 2 sprays INTRANASAL BID PRN #1 ml 09/18/18 04/14/19 History spray aerosol lisinopril 10 mg tablet 10 mg PO Q OTHER DAY #30 tab 09/22/18 04/14/19 Rx azithromycin 250 mg PO DAILY 04/14/19 04/14/19 History codeine 10 mg-guaifenesin 100 mg/5 5 ml PO Q6H PRN #118 ml 04/14/19 04/14/19 Rx mL oral liquid prednisone 10 mg tablet 10 mg PO .COMPLEX #14 tab 04/14/19 04/14/19 Rx Past Med/Surg History Medical History Asthma Endometriosis Fibromyalgia GERD (gastroesophageal reflux disease) Hearing deficit left ear History of colon polyps Hypertension Scoliosis Surgical History H/O arthroscopic knee surgery (Inactive) History of arthroscopy of left knee History of arthroscopy of right knee History of bilateral breast reduction surgery History of bilateral cataract extraction History of bilateral tubal ligation History of colonoscopy History of dilatation and curettage History of endoscopic sinus surgery History of esophagogastroduodenoscopy (EGD) History of tonsillectomy and adenoidectomy History of tooth extraction wisdom teeth History of total abdominal hysterectomy and bilateral salpingo-oophorectomy Hx of myringotomy left ear S/P hysterectomy (Ruled-out) Family History Father Family history of diabetes mellitus Prostate cancer Myocardial infarction Mother Family history of diabetes mellitus Family hx colonic polyps Myocardial infarction Brother Family history of diabetes mellitus Sister Family history of diabetes mellitus Family hx colonic polyps Family/Other Colorectal cancer nephew Prostate cancer niece Uncle Myocardial infarction Aunt Myocardial infarction Other Family hx of colon cancer Denies family history of Ovarian cancer Breast cancer Social History Preferred Language: Setswana Communication Ability: Effective Extension Course Counselor Required: No Beliefs That Will Affect Care: None Current Living Situation: Family Current Living Situation Comment: with Son Other Information That Helps Us Care for You: No Feels Safe at Home: Yes Safety Concerns: Feels Safe At This Time Smoking Status: Never smoker Second Hand Exposure: No ; Hx Alcohol Use: No Hx Substance Use: No Dental Care, Regularly: Yes Seatbelt Use: always Review of Systems Review of Systems: The patient denies lower extremity swelling, sweats, vomiting, diarrhea , constipation, abdominal pain, pelvic pain, blood in urine or stool, dysuria, urinary frequency or urgency, lightheadedness, dizziness, headache, memory loss, loss of consciousness, rash, abnormal bruising or bleeding, imbalance, focal weakness, numbness or tingling in arms or legs, generalized arthralgias or myalgias, back or neck pain, or night sweats. The review of systems is otherwise negative other than for that already noted above, and at least 10 systems have been reviewed. Physical Exam Physical Exam: The patient is awake, alert and oriented 3, well developed and well nourished, normocephalic and atraumatic, lying in bed and in moderate distress during coughing spasms. HEENT--PERRL, EOMI, mucous membranes and oropharynx dry. Neck--supple. No JVD. No bruits. Thyroid normal, trachea midline, no adenopathy. Heart--normal S1 and S2. No murmurs, rubs or gallops. Lungs-coarse breath sounds with wheezes bilaterally, no respiratory distress, no accessory muscle use. Abdomen--normal bowel sounds and soft. Nontender. Nondistended. Extremities--no cyanosis or clubbing. No edema. There are good distal pulses b/l. Dermatologic--normal skin turgor, normal color, no abnormal lymph nodes, no rash. Neurologic--cranial nerves II through XII grossly intact. Rheumatologic--normal range of motion. Psychiatric--normal affect. Results & Data Vital Signs (Past 12 Hours) Vital Signs Temp Pulse Pulse Resp BP BP Pulse Ox 04/14/19 23:12 86 21 172/99 H 95 04/14/19 23:11 96 H 35 H 90 04/14/19 23:10 88 23 172/99 H 93 04/14/19 22:00 84 136/79 04/14/19 21:02 93 H 21 128/88 04/14/19 20:49 96 H 20 131/86 97 04/14/19 20:47 94 H 27 H 131/86 04/14/19 20:39 90 18 94 04/14/19 19:54 97 04/14/19 19:28 90 20 130/88 99 04/14/19 18:09 100.4 F H 100 H 22 125/82 94 Laboratory Results Laboratory Results WBC 8.55 K/uL (4.8-10.8) 04/14/19 20:20 RBC 5.22 M/uL (4.2-5.4) 04/14/19 20:20 Hgb 15.3 g/dL (12.0-16.0) 04/14/19 20:20 Hct 46.2 % (37-47) 04/14/19 20:20 MCV 88.5 fL (80-100) 04/14/19 20:20 MCH 29.3 pg (25-34) 04/14/19 20:20 MCHC 33.1 g/dL (32-36) 04/14/19 20:20 RDW Std Deviation 39.2 fL (36.4-46.3) 04/14/19 20:20 RDW Coeff of Chiqui 12.2 % (11.5-14.5) 04/14/19 20:20 Plt Count 217 K/uL (130-400) 04/14/19 20:20 MPV 10.4 fL (7.4-10.4) 04/14/19 20:20 Immature Gran % (Auto) 0.8 % 04/14/19 20:20 Neut % (Auto) 37.3 % 04/14/19 20:20 Lymph % (Auto) 46.5 % 04/14/19 20:20 [place] % (Auto) 13.6 % 04/14/19 20:20 Eos % (Auto) 1.2 % 04/14/19 20:20 Baso % (Auto) 0.6 % 04/14/19 20:20 Immature Gran # (Auto) 0.07 K/uL (0.00-0.02) H 04/14/19 20:20 Neut # (Auto) 3.19 K/uL (1.4-6.5) 04/14/19 20:20 Lymph # (Auto) 3.98 K/uL (1.2-3.4) H 04/14/19 20:20 [place] # (Auto) 1.16 K/uL (0.11-0.59) H 04/14/19 20:20 Eos # (Auto) 0.10 K/uL (0-0.5) 04/14/19 20:20 Baso # (Auto) 0.05 K/uL (0-0.2) 04/14/19 20:20 Sodium 135 mmol/L (136-145) L 04/14/19 20:20 Potassium 3.9 mmol/L (3.5-5.1) 04/14/19 20:20 Chloride 101 mmol/L (98-107) 04/14/19 20:20 Carbon Dioxide 27 mmol/L (21-32) 04/14/19 20:20 Anion Gap 7.0 (3-11) 04/14/19 20:20 BUN 13 mg/dl (7-18) 04/14/19 20:20 Creatinine 1.05 mg/dl (0.6-1.2) 04/14/19 20:20 Est Cr Clr Drug Dosing 45.2 ml/min 04/14/19 20:20 Est GFR ( Amer) 63.6 04/14/19 20:20 Est GFR (Non-Af Amer) 54.9 04/14/19 20:20 BUN/Creatinine Ratio 12.5 (10-20) 04/14/19 20:20 Glucose 93 mg/dl (70-99) 04/14/19 20:20 Lactate 1.4 mmol/L (0.4-2.0) 04/14/19 20:20 Calcium 9.6 mg/dl (8.5-10.1) 04/14/19 20:20 Total Bilirubin 0.8 mg/dl (0.2-1) 04/14/19 20:20 AST 28 U/L (15-37) 04/14/19 20:20 ALT 28 U/L (12-78) 04/14/19 20:20 Alkaline Phosphatase 73 U/L (45-117) 04/14/19 20:20 Troponin I < 0.015 ng/ml (0-0.045) 04/14/19 20:20 Total Protein 8.8 gm/dl (6.4-8.2) H 04/14/19 20:20 Albumin 4.6 gm/dl (3.4-5.0) 04/14/19 20:20 Globulin 4.2 gm/dl (2.5-4.0) H 04/14/19 20:20 Albumin/Globulin Ratio 1.1 (0.9-2) 04/14/19 20:20 Influenza Type A (PCR) Neg for Influ A (Neg) 04/14/19 20:50 Influenza Type B (PCR) Neg for Influ B (Neg) 04/14/19 20:50 Diagnostic Findings [place] [phone] XRay Report Patient: AKIL SAWYER DAdmit Date: 04/14/19 MR#: [id number]: [address] Acct ID:[id number]: Date: [address] [place] [address] [place] [place] [id number] Age: 68Location: ED Sex: F Room/Bed: Att Phy:Diagnosis: COUGH, SOB, CONGESTION Saundra Phy: Natasha Cartagena CRNPService Date: 04/14/19 Fam Phy:Interpreting Phy: Adiel Espinosa MD Admit Phy: Ordering Phy: Rodney Simmons M.D. cc: ~ XR chest 1V portable CLINICAL HISTORY: SOB COMPARISON STUDY: 04/13/2019 FINDINGS: The cardiac and mediastinal contours remain stable. There is no focal pulmonary consolidation. There is no failure. There are no pleural effusions. There is an 8 mm nodular opacity at the left lung base. No corresponding mass is visualized in this study performed one day prior. This favors atelectatic etiology. Short-term radiographic follow-up is recommended.[ IMPRESSION: 1. No evidence of failure 2. No evidence of lobar consolidation 3. Interval development of an 8 mm opacity at the left lung base. Atelectatic etiology is favored. Short-term radiographic follow-up is recommended ACT 112: Negative or not required by law. Electronically signed by: Adiel Espionsa M.D. 04/14/2019 8:27 PM Dictated: 04/14/192025 Transcribed: 04/14/192025 Code Status & VTE Plan Code Status Full code VTE Prophylaxis Plan VTE Prophylaxis will be ordered: Yes PG Care Time/CCT Total # of Minutes Spent Total Time Spent with Patient: Total time spent is greater than 50% in coordination of care (as documented) at patient's floor/unit and/or counseling patient: Coding Level of Care Code 85355 OBS Care - Level 3 Diagnoses Pneumonia J18.9 Laterality: unspecified laterality Lung location: unspecified part of lung Pneumonia type: due to unspecified organism Asthmatic bronchitis J45.909 Failure of outpatient treatment Z78.9 Benign essential hypertension I10 (1) Pneumonia Laterality: unspecified laterality Lung location: unspecified part of lung Pneumonia type: due to unspecified organism Qualified Code(s): J18.9 - Pneumonia, unspecified organism
[2019-04-15] MEDS ORDERED: MAGNESIUM HYDROXIDE SUSP 30 ML UDC PO PRN (02:11)
[2019-04-15] MEDS ORDERED: ACETAMINOPHEN 325 MG TAB PO PRN (02:11)
[2019-04-15] MEDS ORDERED: ALUMINUM/MAGNESIUM SUSP 30 ML UDC PO PRN (02:11)
[2019-04-15] MEDS ORDERED: LEVALBUTEROL 1.25MG/0.5ML NEB INH PRN (02:11)
[2019-04-15] MEDS ORDERED: ONDANSETRON INJ 2 MG/ML 2 ML VIAL IV PRN (02:11)
[2019-04-15] MEDS: GUAIFENESIN/CODEINE 200MG/20MG 10ML UDC PO PRN ×4 (02:48→21:48)
[2019-04-15] MEDS: methylPREDNISolone 40 MG in SYRINGE 0 ML IV SCH ×3 (04:02→20:11)
[2019-04-15] MEDS ORDERED: AZELASTINE~ORDER AWAITING ACTION SCH (08:00)
[2019-04-15] MEDS: PSYLLIUM 58.6% POWDER PACKET PO SCH (08:04)
[2019-04-15] MEDS: CHOLECALCIFEROL 1,000 UNITS 25 MCG TAB PO SCH (08:04)
[2019-04-15] MEDS ORDERED: AZITHROMYCIN 500 MG in DEXTROSE 5% 250 ML IV SCH (09:00)
--- NOTE | 2019-04-15 17:41 | Hospitalist Progress Note ---
Date of Service April 15, 2019 Assessment & Plan (1) Pneumonia: - Asthmatic bronchitis with possible LLL pneumonia vs atelectasis - possibly failure of outpatient Zpak and prednisone - WBC is WNL; febrile on admission but since resolved; neg for influenza - Nebs ordered PRN - patient hasn't asked for any but consider FILI if no improvement in symptoms tomorrow - Ceftriaxone daily; will stop Zithromax given outpatient use; Solu-Medrol 40 mg IV Q8H - Cough suppressants PRN (2) Asthmatic bronchitis: - As Above (3) Benign essential hypertension: - Continue lisinopril 10 mg daily Disposition: Anticipate home in 1-2 days Admission and Anticipated Discharge Date Admission Date: April 14, 2019 Subjective She reports feeling maybe slightly better but still with significant cough. Remains on room air. Can only take minimal breaths without significant coughing spell. She is fatigued. Toleraating diet without issue. No new complaints at this time. Review of Systems Constitutional: + fatigue; no fever and no chills Ear, Nose, Mouth, Throat: + nasal congestion Respiratory: + cough and + dyspnea Cardiovascular: no chest pain Gastrointestinal: no abdominal pain, no nausea, no vomiting, no constipation and no diarrhea/loose stools Genitourinary: no dysuria Physical Exam Constitutional: WD/WN, vitals as above Eyes: + anicteric sclerae ENMT: Ears: no hearing impairment Neck: trachea midline Respiratory: normal respiratory effort and + cough Auscultation: + wheezes good aeration however triggers significant coughing spells Cardiovascular: RRR, no murmur, no edema Gastrointestinal (Abdomen): Inspection/Auscultation: normal bowel sounds Percussion/Palpation: abdomen soft; abdomen nontender Musculoskeletal: no cyanosis or clubbing, extremities motor strength 5/5 Head/Neck/Chest: normocephalic and head atraumatic Skin: no rashes, warm and dry Neurologic: moves all extremities Psychiatric: A+Ox3, euthymic affect Results & Data ([facility]) Vital Signs (Past 12 Hours) Vital Signs Temp Pulse Resp BP BP Pulse Ox 04/15/19 15:34 36.9 C 73 20 128/85 90 04/15/19 07:09 36.9 C 74 16 105/70 92 PG Care Time/CCT Total # of Minutes Spent Total Time Spent with Patient: Total time spent is greater than 50% in coordination of care (as documented) at patient's floor/unit and/or counseling patient: Coding Level of Care Code 93968 Subseq Obs Care Lvl 2 Diagnoses Pneumonia J18.9 Laterality: unspecified laterality Lung location: unspecified part of lung Pneumonia type: due to unspecified organism Asthmatic bronchitis J45.909 Benign essential hypertension I10 (1) Pneumonia Laterality: unspecified laterality Lung location: unspecified part of lung Pneumonia type: due to unspecified organism Qualified Code(s): J18.9 - Pneumonia, unspecified organism
[2019-04-15] MEDS ORDERED: cefTRIAXone SODIUM 2,000 MG in DEXTROSE 5% 50 ML IV SCH (20:00)
[2019-04-15] MEDS: CETIRIZINE HCL 10 MG TABLET PO SCH (20:11)
--- NOTE | 2019-04-16 00:15 | Electrocardiogram Report ---
Test Reason : Blood Pressure : / mmHG Vent. Rate : 093 BPM Atrial Rate : 093 BPM P-R Int : 162 ms QRS Dur : 094 ms QT Int : 368 ms P-R-T Axes : 025 -13 036 degrees QTc Int : 457 ms Normal sinus rhythm Normal ECG When compared with ECG of 15-SEP-2014 14:39, No significant change was found Confirmed by Markos Soraes ([id number]) on 04/16/2019 12:14:51 AM Referred By: REFERRED SELF Confirmed By:Markos Soares
[2019-04-16] MEDS ORDERED: COUGH DROP (SUGAR FREE) LOZ 24 LOZ/1 BOX BUCCAL STA (02:27)
[2019-04-16] MEDS: GUAIFENESIN/CODEINE 200MG/20MG 10ML UDC PO PRN ×2 (02:35→08:09)
[2019-04-16] MEDS: methylPREDNISolone 40 MG in SYRINGE 0 ML IV SCH (04:10)
[2019-04-16] MEDS: PSYLLIUM 58.6% POWDER PACKET PO SCH (07:52)
[2019-04-16] MEDS: CHOLECALCIFEROL 1,000 UNITS 25 MCG TAB PO SCH (07:52)
[2019-04-16 08:29] LABS: Mean Corpuscular Hemoglobin 29.6 pg (25-34); Mean Corpuscular Hgb Conc 33.3 g/dL (32-36); Mean Corpuscular Volume 88.8 fL (80-100); Mean Platelet Volume 10.4 fL (7.4-10.4); Platelet Count 255 K/uL (130-400); RDW Coefficient of Variation 12.3 % (11.5-14.5); RDW Standard Deviation 39.6 fL (36.4-46.3); Red Blood Count 4.73 M/uL (4.2-5.4); White Blood Count 10.58 K/uL (4.8-10.8)
[2019-04-16] MEDS ORDERED: lisinopriL 10 MG TAB PO SCH (09:00)
[2019-04-16 09:01] LABS: Calcium 9.5 mg/dl (8.5-10.1); Creatinine Clr Calc Pharmacy 53.5 ml/min; Est GFR (African American) 77.7; Est GFR (Non-African American) 67.1; Potassium 4.3 mmol/L (3.5-5.1)
[2019-04-16] MEDS ORDERED: predniSONE 20 MG TAB PO SCH (10:45)
[2019-04-16] MEDS: LEVALBUTEROL 1.25MG/0.5ML NEB INH SCH ×3 (11:14→19:17)
--- NOTE | 2019-04-16 12:06 | Hospitalist Progress Note ---
Date of Service April 16, 2019 Assessment & Plan (1) Pneumonia: - With ?asthmatic bronchitis and LLL pneumonia -- failed outpatient Z-ozzie and Prednisone therapy. - CXR showed 8 mm opacity at left lung base concerning for PNA vs. atelectasis. - Convert Ceftriaxone to Levaquin due to rash. No indication for atypical coverage, completed as outpatient. - Xopenex q6hr scheduled. - Prednisone 40 mg PO daily - hold further doses due to new rash. - Robitussin AC q4hr prn cough; Tylenol prn fever/pain. - Encourage flutter valve use TID. (2) Asthmatic bronchitis: - As noted above; converted Solu-medrol to PO Prednisone 40 mg daily, holding further doses. - Xopenex q6hr scheduled. (3) Rash: - Developed erythematous rash on upper chest and arms over last 24 hours -- concern for drug rash in setting of abx therapy. - Pt. also reports previous erythema that developed following intra-articular steroid injection by ortho in the past but she has tolerated PO Prednisone over the last few years. - Convert Ceftriaxone to Levaquin and monitor for improvement. - Will hold PO steroids although they are not likely the culprit of rash. (4) Vitamin D deficiency: - Continue Vit D replacement. (5) Allergic rhinitis: - Continue Zyrtec 10 mg qhs. (6) Benign essential hypertension: - Continue Lisinopril 10 mg every 48 hours as prescribed. Dispo: Med/surg for treatment of PNA; discharge pending improvement in respiratory issues. Admission and Anticipated Discharge Date Admission Date: April 16, 2019 Subjective Pt. c/o cough with green sputum production. She has SOB with exertion and runny nose. Is having regular BMs, denies urinary retention. Denies chest pain. Very minimal improvement in breathing/resp issues over last 24 hours. Review of Systems Review of Systems: All systems reviewed & are unremarkable except as noted in HPI & below Constitutional: + fatigue and + weakness; no fever, no chills and no anorexia Respiratory: + cough, + chest congestion, + dyspnea on exertion and + sputum production; no change in sputum Cardiovascular: no chest pain, no palpitations and no edema Gastrointestinal: no abdominal pain, no nausea and no constipation Genitourinary: no difficulty urinating Musculoskeletal: no back pain and no joint pain Integumentary: no non-healing lesions Physical Exam Physical Exam: General: Resting comfortably HEENT: NC/AT; PERRLA with EOMI; [place] conjunctiva, MMM. No erythema of posterior pharynx Neck: Supple and nontender Cardiac: RRR Lungs: on room air; scattered wheezing noted throughout Abdomen: Bowel normoactive X 4; Nontender to palpation Extremities: Warm. No edema present Neuro: No focal weakness Skin: No rash Results & Data ([facility]) Vital Signs (Past 12 Hours) Vital Signs Temp Pulse Resp BP Pulse Ox 04/16/19 11:14 72 16 94 04/16/19 07:18 36.7 C 72 16 124/77 93 Laboratory Results 04/16/19 04/16/19 Range/Units 08:22 08:22 WBC 10.58 (4.8-10.8) K/uL RBC 4.73 (4.2-5.4) M/uL Hgb 14.0 (12.0-16.0) g/dL Hct 42.0 (37-47) % MCV 88.8 (80-100) fL MCH 29.6 (25-34) pg MCHC 33.3 (32-36) g/dL RDW Std Deviation 39.6 (36.4-46.3) fL RDW Coeff of Chiqui 12.3 (11.5-14.5) % Plt Count 255 (130-400) K/uL MPV 10.4 (7.4-10.4) fL Sodium 136 (136-145) mmol/L Potassium 4.3 (3.5-5.1) mmol/L Chloride 105 (98-107) mmol/L Carbon Dioxide 24 (21-32) mmol/L Anion Gap 7.0 (3-11) BUN 19 H (7-18) mg/dl Creatinine 0.89 (0.6-1.2) mg/dl Est Cr Clr Drug Dosing 53.5 ml/min Est GFR ( Amer) 77.7 Est GFR (Non-Af Amer) 67.1 BUN/Creatinine Ratio 21.0 H (10-20) Glucose 149 H (70-99) mg/dl Calcium 9.5 (8.5-10.1) mg/dl PG Care Time/CCT Total # of Minutes Spent Total Time Spent with Patient: Total time spent is greater than 50% in coordination of care (as documented) at patient's floor/unit and/or counseling patient: Coding Level of Care Code 28161 Subseq Hosp Care Lvl 2 Diagnoses Pneumonia J18.9 Laterality: unspecified laterality Lung location: unspecified part of lung Pneumonia type: due to unspecified organism Asthmatic bronchitis J45.909 Rash R21 Vitamin D deficiency E55.9 Allergic rhinitis J30.9 Benign essential hypertension I10 (1) Pneumonia Laterality: unspecified laterality Lung location: unspecified part of lung Pneumonia type: due to unspecified organism Qualified Code(s): J18.9 - Pneumonia, unspecified organism
[2019-04-16] MEDS: levoFLOXacin 750 MG TAB PO SCH (14:01)
[2019-04-16] MEDS: CETIRIZINE HCL 10 MG TABLET PO SCH (20:51)
[2019-04-17] MEDS: LEVALBUTEROL 1.25MG/0.5ML NEB INH SCH ×3 (00:38→13:12)
[2019-04-17] MEDS: GUAIFENESIN/CODEINE 200MG/20MG 10ML UDC PO PRN (06:22)
[2019-04-17 06:32] LABS: Basophils # (auto) 0.01 K/uL (0-0.2); Basophils % (auto) 0.1 %; Eosinophils # (auto) 0.01 K/uL (0-0.5); Eosinophils % (auto) 0.1 %; Hematocrit (blood only) 39.3 % (37-47); Hemoglobin 12.6 g/dL (12.0-16.0); Immature Granulocytes # (auto) 0.11 K/uL (0.00-0.02); Lymphocytes # (auto) 2.96 K/uL (1.2-3.4); Lymphocytes % (auto) 25.7 %; Mean Corpuscular Hemoglobin 28.7 pg (25-34); Mean Corpuscular Hgb Conc 32.1 g/dL (32-36); Mean Corpuscular Volume 89.5 fL (80-100); Mean Platelet Volume 10.6 fL (7.4-10.4); Monocytes # (auto) 1.16 K/uL (0.11-0.59); Monocytes % (auto) 10.1 %; Neutrophils # (auto) 7.27 K/uL (1.4-6.5); Platelet Count 254 K/uL (130-400); RDW Coefficient of Variation 12.4 % (11.5-14.5); Red Blood Count 4.39 M/uL (4.2-5.4); White Blood Count 11.52 K/uL (4.8-10.8)
[2019-04-17] MEDS: CHOLECALCIFEROL 1,000 UNITS 25 MCG TAB PO SCH (08:13)
[2019-04-17] MEDS: PSYLLIUM 58.6% POWDER PACKET PO SCH (08:13)
[2019-04-17] MEDS: levoFLOXacin 750 MG TAB PO SCH (11:02)
--- NOTE | 2019-04-17 14:33 | Discharge Summary ---
Date of Service April 17, 2019 Admission HPI Per Admitting Provider The patient is a 68-year-old female with a past medical history including asthma, osteoporosis, allergic rhinitis, benign essential hypertension, GERD and vitamin D deficiency. She initially came sick about a week ago, and was prescribed an initial Z-Сергей, which did not improve significantly, she was prescribed a second Z-Сергей. Over the past 24 hours she has worsened considerably her cough is is paroxysmal and severe. She has had a continued fever up to 100.3 over the past 3 days, despite treatment with prednisone and azithromycin. Because of worsening symptoms, she presents emergency department for assessment tonight. Admission Exam Per Admitting Provider The patient is awake, alert and oriented 3, well developed and well nourished, normocephalic and atraumatic, lying in bed and in moderate distress during coughing spasms. HEENT--PERRL, EOMI, mucous membranes and oropharynx dry. Neck--supple. No JVD. No bruits. Thyroid normal, trachea midline, no adenopathy. Heart--normal S1 and S2. No murmurs, rubs or gallops. Lungs-coarse breath sounds with wheezes bilaterally, no respiratory distress, no accessory muscle use. Abdomen--normal bowel sounds and soft. Nontender. Nondistended. Extremities--no cyanosis or clubbing. No edema. There are good distal pulses b/l. Dermatologic--normal skin turgor, normal color, no abnormal lymph nodes, no rash. Neurologic--cranial nerves II through XII grossly intact. Rheumatologic--normal range of motion. Psychiatric--normal affect. Principal Diagnosis Pneumonia Discharge Exam General: Resting comfortably HEENT: NC/AT; PERRLA with EOMI; [place] conjunctiva, MMM. No erythema of posterior pharynx Neck: Supple and nontender Cardiac: RRR Lungs: on room air; CTA throughout Abdomen: Bowel normoactive X 4; Nontender to palpation Extremities: Warm. No edema present Neuro: No focal weakness Skin: No rash Discharge Data Allergies Allergy/AdvReac Type Severity Reaction Status Date / Time naproxen Allergy Severe sob Verified 04/14/19 21:11 cat dander Allergy Intermediate SOB Verified 04/14/19 21:12 clarithromycin Allergy Intermediate ITCHINESS Verified 04/14/19 21:11 dog dander Allergy Intermediate SOB Verified 04/14/19 21:12 doxycycline Allergy Mild itchy Verified 04/14/19 21:11 guaifenesin Allergy Mild ITCHINESS Verified 04/14/19 21:11 phenylephrine Allergy Mild ITCHINESS Verified 04/14/19 21:11 rofecoxib Allergy Mild sob Verified 04/14/19 21:11 bromocriptine [From Parlodel] Allergy Unknown CAN'T Verified 04/14/19 21:11 REMEMBER raloxifene [From Evista] AdvReac Intermediate CAUSED Verified 04/14/19 21:11 STOMACH ISSUES DUE TO ACID REFLUX. morphine AdvReac Mild Gastrointestinal Verified 04/14/19 21:11 Upset Estrogens AdvReac Unknown HEADACHES Verified 04/14/19 21:11 oxycodone AdvReac Unknown GI UPSET Verified 04/14/19 21:11 ANY PERFUMED, FLORAL SCENTS Allergy Severe SOB Uncoded 04/14/19 21:12 [place] [facility] Allergy Mild ITCHINESS Uncoded 04/14/19 21:11 Consultations 04/14/19 22:08 ED Decision to Admit Stat 04/15/19 02:11 Consult Case Management - Discharge Planning Routine Hospital Course (1) Pneumonia: With ?asthmatic bronchitis and LLL pneumonia -- failed outpatient Z-сергей and Prednisone therapy. CXR showed 8 mm opacity at left lung base concerning for PNA vs. atelectasis. Converted Ceftriaxone to Levaquin due to rash. No indication for atypical coverage, completed as outpatient. Will complete 4 day Levaquin course as outpatient. Xopenex q6hr scheduled. Prednisone 40 mg PO daily as inpt; will complete very low steroid taper as outpatient -- she reports that she cannot tolerate more than 10 mg/day. Robitussin AC q4hr prn cough; Tylenol prn fever/pain. Flutter valve use TID. (2) Asthmatic bronchitis: As noted above; converted Solu-medrol to PO Prednisone 40 mg daily. Will complete steroid taper as outpatient. Xopenex q6hr scheduled. (3) Rash: Developed erythematous rash on upper chest and arms -- concern for drug rash in setting of abx therapy. Pt. also reports previous erythema that developed following intra-articular steroid injection by ortho in the past but she has tolerated PO Prednisone over the last few years. Converted Ceftriaxone to Levaquin; rash resolved with discontinuation of cephalosporin. (4) Vitamin D deficiency: Continued Vit D replacement. (5) Allergic rhinitis: Continued Zyrtec 10 mg qhs. (6) Benign essential hypertension: Continued Lisinopril 10 mg every 48 hours as prescribed. Discharged to home on 04/17/19. Total Time Total Time Spent Total Time Spent (In Minutes): >30 minutes Total Time Includes: Examination of the Patient, Discharge Planning, Medication Reconciliation, Communication With Other Providers and Other Discharge Plan Discharge Items Patient Disposition: Home - Self-Care Reason For Visit: BRONCHITIS, PNEUMONIA Discharge Diagnosis: Pneumonia, Bronchitis Condition on Discharge: Fair Goals: You have been hospitalized for an acute medical problem. During your stay at [facility], we have made an effort to correct the problem that brought you to the hospital while keeping you as comfortable as possible. Medications were used to bring your condition under control and your discharge instructions will include directions for any medications you should take after leaving the hospital. Please make sure you see your Primary Care Provider as part of your follow up plan. Activity: As commented below Exercise/Sports: Wait until after follow-up appointment Non-emergency contact: Primary Care Provider Call non-emergency contact if: you have any medication questions, your symptoms worsen and you have a fever Follow-up/Referrals: Natasha Cartagena CRNP [Primary Care Provider] - 04/23/19 10:30 am (IF YOU NEED TO RESCHEDULE THIS APPOINTMENT, PLEASE CALL EITHER [phone] OR [phone]) Diet: Regular Addtl Attending Provider Instructions: 1. Pneumonia * Please take Levaquin daily for treatment of infection - first dose on Tuesday 04/18, last dose on Friday 04/21. * Please take Prednisone taper as follows: - Prednisone 10 mg (2 tablets) x 2 days. - Prednisone 7.5 mg (1.5 tablets) x 2 days. - Prednisone 5 mg (1 tablet) x 2 days. - Prednisone 2.5 mg (0.5 tablet) x 2 days then discontinue. * Please take Mucinex 1200 mg twice daily for congestion. 2. Rash * Now improved; likely related to Ceftriaxone use as an inpatient. * Please use caution when prescribed antibiotics in the future -- this medication belongs to the cephalosporin class of antibiotics. 3. Please follow up with PCP as scheduled on 04/23/19. Pending Studies at Discharge: No Stand-Alone Forms: My [facility] Medications and DC Order Prescriptions: New levofloxacin 750 mg Tablet 750 mg PO DAILY@1100 4 Days Qty: 4 RF: 0 Continued codeine-guaifenesin 10-100 mg/5 mL liquid 5 ml PO Q6H PRN (Reason: cold symptoms) Qty: 118 RF: 0 azelastine 137 mcg (0.1 %) aerosol,spray 2 sprays intranasal BID PRN (Reason: allergy symptoms) Qty: 1 RF: 0 lisinopril 10 mg tablet 10 mg PO Q OTHER DAY Qty: 30 RF: 5 cetirizine 10 mg Tablet 10 mg PO HS RF: 0 hydrocortisone [Proctozone-HC] 2.5 % Cream With Perineal Applicator 1 applic MA DAILY PRN (Reason: Hemorrhoids) RF: 0 fiber Powder 3.4 g PO QAM RF: 0 levalbuterol HCl 1.25 mg/0.5 mL Solution For Nebulization 1.25 mg INHALATION TID PRN (Reason: Shortness Of Breath) RF: 0 cholecalciferol (vitamin D3) [Vitamin D3] 5,000 unit Tablet 5,000 unit PO QAM RF: 0 levalbuterol tartrate 45 mcg/actuation Hfa Aerosol Inhaler 2 puff INHALATION QID PRN (Reason: Shortness Of Breath) RF: 0 Changed prednisone 10 mg tablet 10 mg PO .COMPLEX Qty: 14 RF: 0 Discontinued azithromycin 250 mg tablet 250 mg PO DAILY RF: 0 Discharge Orders: Discharge Order (Routine); Ordered 04/17/19 Ordered By: Jia Dey Admission Data Admit Date/Time: 04/16/19 10:27 Attending Provider: Mario Alberto Nunez Admit Provider: Neri Camacho Primary Care Provider: Natasha Cartagena Other Providers: Neri Camacho Other Interventions: Discharge Summary Assessment (RN) Last Done: 04/17/19 11:55 DC Date/Time DO NOT enter until pt leaves facility: 04/17/19 16:07 Supervising Physician Co-Signing Physician Notes Patient seen and examined on the day of discharge. I agree with the discharge summary by Jia CRISTINA. I have reviewed the chart including labs, imaging and plans for discharge. patient feeling a lot better compared to admission responded well to antibiotics, had a slight reaction to Rocephin so changed to Levaquin appetite is slowly returning but not back to baseline - Pneumonia: no hypoxia, no fever, feeling a lot better complete course of Levaquin at home stressed importance of rest, hydration and nutrition over the next few days patient's son updated at the bedside Coding Level of Care Code D/C Day Management >30 mins Diagnoses Pneumonia J18.9 Laterality: unspecified laterality Lung location: unspecified part of lung Pneumonia type: due to unspecified organism Asthmatic bronchitis J45.909 Rash R21 Vitamin D deficiency E55.9 Allergic rhinitis J30.9 Benign essential hypertension I10
== END 2019-04-17 16:07 | disposition home or self-care (01) | DRG 202 ==
LOC: 4W 17:28 → ED 17:28 → SUATTDRO 23:10 → 4W 04-15 01:40
DX: I10 Essential (primary) hypertension; E55.9 Vitamin D deficiency, unspecified; K21.9 Gastro-esophageal reflux disease without esophagitis; J45.909 Unspecified asthma, uncomplicated; J18.9 Pneumonia, unspecified organism; M41.9 Scoliosis, unspecified; R21 Rash and other nonspecific skin eruption; J40 Bronchitis, not specified as acute or chronic